=== PATIENT | male | born 1980 | race Caucasian/White ===

== ENCOUNTER 2017-12-28 13:40 | Emergency (ER) | payer OTHER ==
--- NOTE | 2017-12-28 14:37 | RAD REPORT ---
EXAM DESCRIPTION: CT - Stone Protocol - 12/28/2017 2:23 pm CLINICAL HISTORY: Abdominal pain. Right flank pain for 5 days COMPARISON: None. TECHNIQUE: Computed axial tomography of the abdomen pelvis was obtained without oral or IV contrast. Lack of IV and oral contrast limits evaluation of solid organs, bowel, and vessels. Coronal reformat ruben images were obtained and reviewed. All CT scans are performed using dose optimization technique as appropriate and may include automated exposure control or mA/KV adjustment according to patient size. FINDINGS: A 3 millimeter left renal calculus is present without hydronephrosis. . An ureteral calcul us is not noted. A bladder calculus is not present. The liver, spleen, pancreas and adrenals appear grossly normal There is no evidence of diverticulitis. The appendix appears normal The gallbladder has been removed IMPRESSION: A 3 millimeter nonobstructing left renal calculus
[2017-12-28] MEDS ORDERED: NA CHLORIDE 0.9% 1,000 ML ONE (15:05)
[2017-12-28] MEDS ORDERED: ONDANSETRON 4 MG/2 ML VIAL ONE (15:05)
[2017-12-28] MEDS ORDERED: MORPHINE 4 MG/ML SYR ONE (15:05)
[2017-12-28 15:06] LABS: Absolute Lymphocytes (CBC) 1.1 K/uL (0.7-4.9); Absolute Monocytes 0.3 K/uL (0.1-1.3); Absolute Neutrophil 3.2 K/uL (1.8-8.0); Basophils % 1.2 % (0-1.3); Eosinophils % 2.3 % (0-4.4); Hematocrit 47.2 % (39.6-49.0); Lymphocytes % 23.4 % (15.3-44.8); MCH 29.9 pg (27.0-35.0); MCV 90.5 fL (80-100); Monocytes % 5.4 % (3.3-12.3); RBC Red Blood Cell Count 5.22 M/uL (4.33-5.43)
[2017-12-28 15:10] LABS: Urine Blood NEGATIVE (NEG); Urine Glucose NEGATIVE (NEG); Urine Protein NEGATIVE (NEG); Urine pH 8.5 (5.0-7.0)
[2017-12-28 15:13] LABS: Urine Bacteria <20 /HPF (NONE SEEN); Urine Culture Reflex Order NOT NEEDED; Urine RBC <5 /HPF (NONE SEEN)
[2017-12-28 15:14] LABS: Bicarbonate 30 mEq/L (21-31); Glucose Level 111 mg/dL (65-120); Lipase 31 U/L (22-51); Potassium 4.2 mEq/L (3.6-5.0); Sodium Level 142 mEq/L (135-145)
[2017-12-28 15:20] LABS: ALT/SGPT 37 IU/L (10-60); AST/SGOT 30 IU/L (10-42); Albumin 4.9 g/dL (3.2-5.5); Alkaline Phosphatase 49 IU/L (42-121); Amylase Level 49 U/L (28-100); BUN Blood Urea Nitrogen 12 mg/dL (6-20); Bilirubin Direct 0.1 mg/dL (0-0.2); Bilirubin Total 0.8 mg/dL (0.3-1.2); Protein, Total 7.8 g/dL (6.0-8.3)
--- NOTE | 2017-12-28 15:44 | RAD REPORT ---
EXAM DESCRIPTION: Ribs Right - 12/28/2017 3:33 pm CLINICAL HISTORY: Right rib pain FINDINGS: No fracture is seen
--- NOTE | 2017-12-28 15:46 | RAD REPORT ---
EXAM DESCRIPTION: [place]ad Single View12/28/2017 3:33 pm CLINICAL HISTORY: Chest pain COMPARISON: none FINDINGS: The lungs appear clear of acute infiltrate. The heart is normal size IMPRESSION: No acute abnormalities displayed
[2017-12-28 16:33] LABS: Protime INR 1.01
--- NOTE | 2017-12-28 17:56 | ER ---
Nurse's Notes [facility] Name: Yared Rosenthal Jr Age: 37 yrs Sex: Male : 1980 Arrival Date: 12/28/2017 Time: 13:43 Bed 24 Private MD: Jono Marshall Diagnosis: Strain of muscle and tendon of back wall of thorax Presentation: 12/28 13:44 Presenting complaint: Patient states: Right upper back pain x 5 days, unrelieved by hb Motrin and Tylenol 3. Pt also reports foul smelling urine x 2 weeks. Transition of care: patient was not received from another setting of care. Onset of symptoms was December 24, 2017. Risk Assessment: Do you want to hurt yourself or someone else? Patient reports no desire to harm self or others. 13:44 Method Of Arrival: Ambulatory 13:44 Acuity: GLORIA 3 12/29 00:36 Initial Sepsis Screen: Does the patient meet any 2 criteria? No. Patient's initial tl3 sepsis screen is negative. Does the patient have a suspected source of infection? No. Patient's initial sepsis screen is negative. Care prior to arrival: None. Triage Assessment: 00:37 General:. tl3 Historical: - Allergies: 12/28 13:47 No Known Allergies; hb - Home Meds: 13:47 unknown bp med [Active]; hb - PMHx: 13:47 Hypertension; hb - PSHx: 13:47 Cholecystectomy; hb - Immunization history:: Adult Immunizations up to date. - Social history:: Smoking status: Patient/guardian denies using tobacco. - Ebola Screening: : No symptoms or risks identified at this time. Screenin:00 Abuse screen: Denies threats or abuse. Nutritional screening: No deficits noted. tl3 Tuberculosis screening: No symptoms or risk factors identified. Fall Risk None identified. Assessment: 14:00 General: Appears uncomfortable, well groomed, well developed, well nourished, Behavior tl3 is calm, cooperative, appropriate for age. Pain: Complains of pain in back, rib pain. Neuro: Level of Consciousness is awake, alert, obeys commands, Oriented to person, place, time, situation, Appropriate for age. Cardiovascular: Patient's skin is warm and dry. Respiratory: Airway is patent Respiratory effort is even, unlabored, Respiratory pattern is regular, symmetrical, Breath sounds are clear bilaterally. GI: No deficits noted. No signs and/or symptoms were reported involving the gastrointestinal system. : No deficits noted. No signs and/or symptoms were reported regarding the genitourinary system. EENT: No deficits noted. No signs and/or symptoms were reported regarding the EENT system. Derm: No deficits noted. Musculoskeletal: No deficits noted. No signs and/or symptoms reported regarding the musculoskeletal system. 16:55 Reassessment: Patient appears in no apparent distress at this time. No changes from tl3 previously documented assessment. Patient and/or family updated on plan of care and expected duration. Pain level reassessed. Patient is alert, oriented x 3, equal unlabored respirations, skin warm/dry/pink. 18:39 Reassessment: Patient appears in no apparent distress at this time. No changes from tl3 previously documented assessment. Patient and/or family updated on plan of care and expected duration. Pain level reassessed. Patient is alert, oriented x 3, equal unlabored respirations, skin warm/dry/pink. discussed with pt the need to redraw lab samples, he stated he was not worried about the labs being redone since all of the other testing was normal. Ronal at bedside discussing results and treatment options. Vital Signs: 13:46 BP 139 / 81; Pulse 61; Resp 15; Temp 98.4; Pulse Ox 100% on R/A; Weight 83.91 kg; hb Height 5 ft. 11 in. (180.34 cm); Pain 9/10; 14:00 BP 121 / 77; Pulse 51; Resp 18; Pulse Ox 100% ; tl3 16:55 BP 118 / 71; Pulse 46; Resp 16; Pulse Ox 100% on R/A; tl3 13:46 Body Mass Index 25.80 (83.91 kg, 180.34 cm) hb ED Course: 13:43 Patient arrived in ED. mr 13:44 Jono Marshall MD is Private Physician. mr 13:46 Triage completed. hb 13:46 Arm band placed on left wrist. hb 13:51 [facility] pm1 13:51 Braxton Stone MD is Attending Physician. pm1 14:00 Patient has correct armband on for positive identification. Bed in low position. Call tl3 light in reach. Side rails up X 1. Adult w/ patient. Pulse ox on. NIBP on. 14:21 Nicolle Scanlon, RN is Primary Nurse. tl3 14:23 CT completed. Patient moved to CT via wheelchair. Patient moved back from CT. cw1 14:23 CT Stone Protocol In Process Unspecified. EDMS 15:01 Initial lab(s) drawn, by me, sent to lab. Urine collected: clean catch specimen, clear. tl3 Inserted saline lock: 20 gauge in right forearm, using aseptic technique. Blood collected. 15:10 EKG done, by ED staff. jp3 15:10 No provider procedures requiring assistance completed. tl3 15:27 Chest Single View XRAY In Process Unspecified. EDMS 15:27 Ribs Right XRAY In Process Unspecified. EDMS 17:56 Jono Marshall MD is Referral Physician. pm1 18:39 IV discontinued, intact, bleeding controlled, No redness/swelling at site. Pressure tl3 dressing applied. Administered Medications: 15:17 Drug: Zofran 4 mg Route: IVP; Infused Over: 2 mins; Site: right forearm; tl3 16:56 Follow up: Response: No adverse reaction tl3 15:18 Drug: NS 0.9% 1000 ml Route: IV; Rate: 1000 ml; Site: right forearm; Delivery: Primary tl3 tubing; 16:56 Follow up: IV Status: Completed infusion; IV Intake: 1000ml tl3 15:18 Drug: morphine 4 mg Route: IVP; Infused Over: 3 mins; Site: right forearm; tl3 16:56 Follow up: Response: No adverse reaction tl3 Intake: 16:56 IV: 1000ml; Total: 1000ml. tl3 Outcome: 17:56 Discharge ordered by . pm1 18:39 Patient left the ED. jl7 18:39 Discharged to home ambulatory. tl3 18:39 Condition: good 18:39 Discharge instructions given to patient, family, Instructed on discharge instructions, follow up and referral plans. Demonstrated understanding of instructions, follow-up care. Signatures: Dispatcher [employer] [facility] Annie Galeana Crystal cw1 Ronal Hawthorne, HOSTESS HOSTESS pm1 Fannie Lewis RN RN hb Leal, Jahala, RN RN jl7 Nicolle Scanlon, ERIC REYES tl3 Tucker Crandall jp3 Corrections: (The following items were deleted from the chart) 13:48 13:44 Presenting complaint: Patient states: Right upper back pain x 5 days, unrelieved hb by Motrin and Tylenol 3. hb 13:48 13:44 Presenting complaint: Patient states: Right upper back pain x 5 days, unrelieved hb by Motrin and Tylenol 3. Pt also report foul smelling urine x 2 weeks hb 12/29 00:36 06 18:39 Reassessment: Patient appears in no apparent distress at this time. No tl3 changes from previously documented assessment. Patient and/or family updated on plan of care and expected duration. Pain level reassessed. Patient is alert, oriented x 3, equal unlabored respirations, skin warm/dry/pink. discussed with pt the need to redraw lab samples, he stated he was not worried about the labs being redone since all of the other testing was normal tl3
--- NOTE | 2017-12-28 17:57 | EDPHYS ---
Physician Documentation [facility] Name: Yared Rosenthal Jr Age: 37 yrs Sex: Male : 1980 Arrival Date: 12/28/2017 Time: 13:43 Bed 24 Private MD: Jono Marshall ED Physician Braxton Stone HPI: 12/28 15:00 This 37 yrs old Male presents to ER via Ambulatory with complaints of Left pm1 Back Pain. 15:00 The patient presents with pain that is acute. The symptoms are located in the right pm1 subscapular area. 15:00 Onset: The symptoms/episode began/occurred 5 day(s) ago. The pain does not radiate. pm1 Associated signs and symptoms: Pertinent positives: Right sided chest pain, Pertinent negatives: abdominal pain, dysuria, fever, headache, nausea, numbness, tingling, vomiting, Shortness of breath. The problem was sustained Possibly sports or kidney stone. Modifying factors: The patient symptoms are alleviated by Palpation to right subscapular area. Severity of symptoms: in the emergency department the symptoms are actually worse. 16:00 Patient with right subscapular back pain that feels like his prior renal stone in the pm1 past that waxes and wanes. Patient also reports that he was playing softball and plays third base. Patient dove for a ball and landed on his right shoulder. Patient suspects that it might be the diving motion too. Patient was given a prescription for muscle relaxant and NSAID by PCP for the same presentation pain. Historical: - Allergies: 13:47 No Known Allergies; hb - Home Meds: 13:47 unknown bp med [Active]; hb - PMHx: 13:47 Hypertension; hb - PSHx: 13:47 Cholecystectomy; hb - Immunization history:: Adult Immunizations up to date. - Social history:: Smoking status: Patient/guardian denies using tobacco. - Ebola Screening: : No symptoms or risks identified at this time. ROS: 16:00 Constitutional: Negative for fever, chills, and weight loss, Eyes: Negative for injury, pm1 pain, redness, and discharge, ENT: Negative for injury, pain, and discharge, Neck: Negative for injury, pain, and swelling. 16:00 Respiratory: Negative for shortness of breath, cough, wheezing. Deep brathing increases pain to right subscapular area 16:00 Abdomen/GI: Negative for abdominal pain, nausea, vomiting, diarrhea, and constipation, Back: Negative for injury and pain, MS/Extremity: Negative for injury and deformity, Skin: Negative for injury, rash, and discoloration, Neuro: Negative for headache, weakness, numbness, tingling, and seizure. 16:00 Cardiovascular: Positive for chest pain, of the anterior aspect of right upper chest, Negative for edema, palpitations. Exam: 16:00 Constitutional: This is a well developed, well nourished patient who is awake, alert, pm1 and in no acute distress. Head/Face: Normocephalic, atraumatic. Eyes: Pupils equal round and reactive to light, extra-ocular motions intact. Lids and lashes normal. Conjunctiva and sclera are non-icteric and not injected. Cornea within normal limits. Periorbital areas with no swelling, redness, or edema. ENT: Nares patent. No nasal discharge, no septal abnormalities noted. Tympanic membranes are normal and external auditory canals are clear. Oropharynx with no redness, swelling, or masses, exudates, or evidence of obstruction, uvula midline. Mucous membranes moist. Neck: Trachea midline, no thyromegaly or masses palpated, and no cervical lymphadenopathy. Supple, full range of motion without nuchal rigidity, or vertebral point tenderness. No Meningismus. Chest/axilla: Normal chest wall appearance and motion. Nontender with no deformity. No lesions are appreciated. Cardiovascular: Regular rate and rhythm with a normal S1 and S2. No gallops, murmurs, or rubs. Normal PMI, no JVD. No pulse deficits. Respiratory: Lungs have equal breath sounds bilaterally, clear to auscultation and percussion. No rales, rhonchi or wheezes noted. No increased work of breathing, no retractions or nasal flaring. Abdomen/GI: Soft, non-tender, with normal bowel sounds. No distension or tympany. No guarding or rebound. No evidence of tenderness throughout. 16:00 Skin: Warm, dry with normal turgor. Normal color with no rashes, no lesions, and no evidence of cellulitis. MS/ Extremity: Pulses equal, no cyanosis. Neurovascular intact. Full, normal range of motion. 16:00 Back: pain, that is moderate, of the right subscapular area, tenderness, normal spinal alignment noted. 16:00 Neuro: Orientation: is normal, Motor: is normal, moves all fours, Sensation: is normal, no obvious gross deficits, Gait: is steady, at a normal pace, without difficulty. Vital Signs: 13:46 BP 139 / 81; Pulse 61; Resp 15; Temp 98.4; Pulse Ox 100% on R/A; Weight 83.91 kg; hb Height 5 ft. 11 in. (180.34 cm); Pain 9/10; 14:00 BP 121 / 77; Pulse 51; Resp 18; Pulse Ox 100% ; tl3 16:55 BP 118 / 71; Pulse 46; Resp 16; Pulse Ox 100% on R/A; tl3 13:46 Body Mass Index 25.80 (83.91 kg, 180.34 cm) hb MDM: 13:53 Patient medically screened. lesley 17:41 Data reviewed: vital signs. Data interpreted: Pulse oximetry: on room air is 100 %. pm1 Interpretation: normal. 17:43 Refusal of service: The patient/guardian displays adequate decision making capability pm1 and despite a detailed discussion of alternatives, benefits, risks, and consequences refuses: Patient does not want to wait for labs: troponin, mg, cpk, ckmb, and bnp. Patient wants to go home. Labs require redraw for laboratory to perform them. 12/28 14:13 Order name: Amylase, Serum pm1 12/28 14:13 Order name: Basic Metabolic Panel pm1 12/28 14:13 Order name: CBC with Diff pm1 12/28 14:13 Order name: Creatinine for Radiology; Complete Time: 15:52 pm1 12/28 14:13 Order name: Hepatic Function pm1 12/28 14:13 Order name: Lipase pm1 12/28 14:13 Order name: Urine Microscopic Only; Complete Time: 15:52 pm1 12/28 14:13 Order name: Amylase Level; Complete Time: 15:52 EDMS 12/28 14:13 Order name: Basic Metabolic Panel; Complete Time: 15:52 EDMS 12/28 14:13 Order name: CBC with Automated Diff; Complete Time: 15:52 EDMS 12/28 14:13 Order name: Liver (Hepatic) Function; Complete Time: 15:52 EDMS 12/28 14:13 Order name: Lipase; Complete Time: 15:52 EDMS 12/28 14:13 Order name: IV Saline Lock; Complete Time: 15:19 pm1 12/28 14:13 Order name: Labs collected and sent; Complete Time: 15:19 pm1 12/28 14:13 Order name: Urine Dipstick-Ancillary (obtain specimen); Complete Time: 15:19 pm1 12/28 14:13 Order name: CT Stone Protocol; Complete Time: 14:39 pm1 12/28 15:00 Order name: Chest Single View XRAY; Complete Time: 15:52 pm1 12/28 15:00 Order name: Ribs Right XRAY; Complete Time: 15:52 pm1 12/28 15:02 Order name: PT-INR; Complete Time: 16:40 pm1 12/28 15:02 Order name: Ptt, Activated; Complete Time: 16:40 pm1 12/28 15:02 Order name: EKG; Complete Time: 15:03 pm1 12/28 15:06 Order name: Urine Dipstick--Ancillary (enter results); Complete Time: 15:52 bd 12/28 15:02 Order name: EKG - Nurse/Tech; Complete Time: 15:17 pm1 Administered Medications: 15:17 Drug: Zofran 4 mg Route: IVP; Infused Over: 2 mins; Site: right forearm; tl3 16:56 Follow up: Response: No adverse reaction tl3 15:18 Drug: NS 0.9% 1000 ml Route: IV; Rate: 1000 ml; Site: right forearm; Delivery: Primary tl3 tubing; 16:56 Follow up: IV Status: Completed infusion; IV Intake: 1000ml tl3 15:18 Drug: morphine 4 mg Route: IVP; Infused Over: 3 mins; Site: right forearm; tl3 16:56 Follow up: Response: No adverse reaction tl3 Disposition: 12/29 14:10 Co-signature as Attending Physician, Braxton Stone MD I agree with the assessment and lesley plan of care. Disposition: 12/28/17 17:56 Discharged to Home. Impression: Strain of muscle and tendon of back wall of thorax. - Condition is Stable. - Discharge Instructions: Muscle Strain. - Medication Reconciliation Form, Thank You Letter form. - Follow up: Emergency Department; When: As needed; Reason: Worsening of condition. Follow up: Jono Marshall MD; When: 2 - 3 days; Reason: Recheck today's complaints, Continuance of care, Re-evaluation by your physician. - Problem is new. - Symptoms have improved. Signatures: Dispatcher [employer] Braxton Bingham MD MD cha Marinas, Patrick, ONLINE USER EXPERIENCE STRATEGIST ONLINE USER EXPERIENCE STRATEGIST pm1 Fannie Lewis, RN RN hb Kimberly Welch RN RN jl7 Nicolle Scanlon RN RN tl3 Corrections: (The following items were deleted from the chart) 12/28 18:39 17:56 12/28/2017 17:56 Discharged to Home. Impression: Strain of muscle and tendon of jl7 back wall of thorax. Condition is Stable. Forms are Medication Reconciliation Form, Thank You Letter, Antibiotic Education, Prescription Opioid Use. Follow up: Emergency Department; When: As needed; Reason: Worsening of condition. Follow up: Jono Marshall; When: 2 - 3 days; Reason: Recheck today's complaints, Continuance of care, Re-evaluation by your physician. Problem is new. Symptoms have improved. pm1
--- NOTE | 2017-12-29 07:33 | EKG ---
Test Date: 2017-12-28 Test Time: 15:09:45 Core Man: MACARIO MEASUREMENT RESULTS: Intervals: Rate: 52 AR: 152 QRSD: 88 QT: 406 QTc: 377 [place]: P: 37 AR: 152 QRS: 103 T: 47 INTERPRETIVE STATEMENTS: Sinus bradycardia Rightward axis Borderline ECG Compared to ECG 07/23/1993 09:32:00 Sinus rhythm no longer present Electronically Signed On 12-29-17 07:32:58 CDT by Soham Guzman
== END 2017-12-28 18:39 | disposition home or self-care (01) ==
LOC: ER 13:40
DX: S29.012A Strain of muscle and tendon of back wall of thorax, initial encounter (principal); X58.XXXA Exposure to other specified factors, initial encounter; Y93.64 Activity, baseball; Y92.9 Unspecified place or not applicable; I10 Essential (primary) hypertension
CPT/HCPCS: 36415; 71045; 74176; 76377; 80048; 80076; 81003; 81015; 82150; 83690; 85025; 85610; 85730; 93005; 96361; 96374; 96375; 99284; J2405; J7030

== ENCOUNTER 2019-05-24 18:42 | Inpatient (IN) | payer BC, OTHER ==
[2019-05-24] MEDS ORDERED: NA CHLORIDE 0.9% 1,000 ML ONE ×2 (19:04)
[2019-05-24] MEDS ORDERED: MORPHINE 4 MG/ML SYR ONE (19:04)
[2019-05-24] MEDS ORDERED: ONDANSETRON 4 MG/2 ML VIAL ONE ×4 (19:04→22:21)
[2019-05-24] MEDS ORDERED: CEFTRIAXONE/SWI 1gm 1 GM/10 ML SYR ONE (19:04)
[2019-05-24] MEDS ORDERED: KETOROLAC 30 MG/ML INJ ONE (19:04)
[2019-05-24] MEDS ORDERED: TAMSULOSIN 0.4 MG SR CAP ONE (19:04)
[2019-05-24 19:28] LABS: Albumin 4.7 g/dL (3.4-5.0); Bilirubin Direct 0.2 mg/dL (0-0.2); Bilirubin Total 0.9 mg/dL (0.2-1.0); Potassium 3.4 mmol/L (3.5-5.1); Protein, Total 7.6 g/dL (6.4-8.2)
[2019-05-24 19:29] LABS: Absolute Lymphocytes (CBC) 2.2 K/uL (0.7-4.9); Basophils % 0.9 % (0-1.3); Hematocrit 46.4 % (39.6-49.0); Lymphocytes % 31.6 % (15.3-44.8); MPV 8.4 fL (7.6-11.3); RBC Red Blood Cell Count 5.05 M/uL (4.33-5.43)
--- NOTE | 2019-05-24 19:44 | RAD REPORT ---
EXAM DESCRIPTION: CT - Stone Protocol - 05/24/2019 7:20 pm CLINICAL HISTORY: Back pain, nausea, vomiting, kidney stone history COMPARISON: December 2017 TECHNIQUE: Axial 5 mm thick images were obtained without oral or IV contrast. The [id number] span s the entirety of the system partially obscuring uppermost abdomen and lung bases. All CT scans are performed using dose optimization technique as appropriate and may include automated exposure control or mA/KV adjustment according to patient size. FINDINGS: Mild left-sided hydronephrosis of the pelvis and calices noted secondary to a 5 mm left UP J calculus. No additional left-sided calculi seen. No right-sided hydronephrosis. Trace amount of str anding in the perinephric fat. No suspicious renal masses. Isodense masses and pyelonephritis are not excluded on a stone protocol CT scan. No urinary bladder suspicious finding. No significant adrenal finding. Imaged portions of the liver, spleen and pancreas show no suspicious findings on non-contrast imaging . Gallbladder is absent. No biliary tree dilatation. No suspicious bowel findings. No hernia, mass or bulky lymphadenopathy noted. No free air, free fluid or inflammatory stranding. No significant bony abnormality. IMPRESSION: Mild left-sided hydronephrosis secondary to 5 mm left UPJ calculus. Isodense masses and pyelonephritis are not excluded on stone protocol technique.
[2019-05-24] MEDS ORDERED: HYDROMORPHONE HCL 1 MG/ML INJ ONE (19:46)
--- NOTE | 2019-05-24 20:31 | ER ---
Nurse's Notes [facility] Name: Yared Rosenthal Jr Age: 38 yrs Sex: Male : 1980 Arrival Date: 05/24/2019 Time: 18:45 Bed 19 Private MD: Jono Marshall Diagnosis: Hydronephrosis with renal and ureteral calculous obstruction-5 MM UVJ;Volume depletion;Unspecified kidney failure-INSUFFICENCY;Hypokalemia Presentation: 05/24 18:50 Presenting complaint: Patient states: Low back pain since yesterday that became severe aj1 today. Patient also reports nausea, denies vomiting, Reports history of kidney stones states that this feels similar to his previous stones. Patient appears restless, diaphoretic. Transition of care: patient was not received from another setting of care. Onset of symptoms was May 23, 2019. Risk Assessment: Do you want to hurt yourself or someone else? Patient reports no desire to harm self or others. Initial Sepsis Screen: Does the patient meet any 2 criteria? No. Patient's initial sepsis screen is negative. Does the patient have a suspected source of infection? No. Patient's initial sepsis screen is negative. Care prior to arrival: None. 18:50 Method Of Arrival: Ambulatory aj1 18:50 Acuity: GLORIA 2 aj1 Triage Assessment: 18:52 General: Appears uncomfortable, Behavior is cooperative, restless. Pain: Complains of aj1 pain in left low back Pain currently is 10 out of 10 on a pain scale. Neuro: Level of Consciousness is awake, alert, obeys commands. Cardiovascular: Patient's skin is warm and dry. Respiratory: Airway is patent Respiratory effort is even, unlabored, Respiratory pattern is regular, symmetrical. GI: Reports nausea, vomiting. Historical: - Allergies: 18:52 No Known Allergies; aj1 - Home Meds: 18:52 amlodipine oral [Active]; aj1 - PMHx: 18:52 Hypertension; Kidney stones; aj1 - PSHx: 18:52 Cholecystectomy; aj1 - Immunization history:: Flu vaccine is not up to date. - Social history:: Smoking status: Patient/guardian denies using tobacco. - Ebola Screening: : Patient denies travel to an Ebola-affected area in the 21 days before illness onset. - Family history:: not pertinent. Screenin:55 Abuse screen: Denies threats or abuse. Denies injuries from another. Nutritional ca1 screening: No deficits noted. Tuberculosis screening: No symptoms or risk factors identified. Fall Risk IV access (20 points). Assessment: 18:55 General: Appears in no apparent distress. uncomfortable, Behavior is calm, cooperative, ca1 appropriate for age. Pain: Complains of pain in left mid back and left low back Pain radiates to left lower quadrant and pelvis Pain currently is 10 out of 10 on a pain scale. Quality of pain is described as squeezing, Pain began 1 day ago. Is continuous. Neuro: Level of Consciousness is awake, alert, obeys commands, Oriented to person, place, time, situation. Cardiovascular: Heart tones S1 S2 present Capillary refill < 3 seconds Patient's skin is warm and dry. Respiratory: Airway is patent Respiratory effort is even, unlabored, Respiratory pattern is regular, symmetrical, Breath sounds are clear bilaterally. GI: Abdomen is round non-distended, Bowel sounds present X 4 quads. Abd is soft and non tender X 4 quads. Reports nausea. : No deficits noted. No signs and/or symptoms were reported regarding the genitourinary system. EENT: No deficits noted. No signs and/or symptoms were reported regarding the EENT system. Derm: Skin is intact, is healthy with good turgor, Skin is pink, warm \T\ dry. Musculoskeletal: Circulation, motion, and sensation intact. Capillary refill < 3 seconds, Range of motion: intact in all extremities. 19:30 Reassessment: Patient appears in no apparent distress at this time. Patient is alert, rr5 oriented x 3, equal unlabored respirations, skin warm/dry/pink. Patient states feeling better. Patient states symptoms have improved. Reassessment: awaiting for results. Pain: Pain currently is 2 out of 10 on a pain scale. 19:48 Pain: Complains of pain in left lower quadrant Pain radiates to back Pain currently is rr5 10 out of 10 on a pain scale. Quality of pain is described as aching, Pain began suddenly, Is continuous. GI: Pt is actively vomiting previously ingested red wine. 19:48 Reassessment: ED provider aware with order made and carried out. rr5 20:30 Reassessment: Patient appears in no apparent distress at this time. Patient is alert, rr5 oriented x 3, equal unlabored respirations, skin warm/dry/pink. Patient states feeling better. Patient states symptoms have improved. 20:30 Pain: Pain currently is 2 out of 10 on a pain scale. rr5 20:50 Reassessment: Patient appears in no apparent distress at this time. Patient is alert, rr5 oriented x 3, equal unlabored respirations, skin warm/dry/pink. ED provider reexamined the patient advised for admission and agreed for the plan of care. 21:05 Reassessment: Patient appears in no apparent distress at this time. Pain: Pain rr5 currently is 10 out of 10 on a pain scale. GI: Reports lower abdominal pain, nausea. 21:05 Reassessment: ED provider aware with order made and carried out. see MAR. rr5 21:35 Reassessment: Patient appears in no apparent distress at this time. Patient is alert, rr5 oriented x 3, equal unlabored respirations, skin warm/dry/pink. Patient states feeling better. Patient states symptoms have improved. Pain: Pain currently is 1 out of 10 on a pain scale. 22:20 Reassessment: Patient appears in no apparent distress at this time. patient complained rr5 of nausea and vomiting. Dr lynn informed isaac phone with telephone order made and carried out. Vital Signs: 18:52 BP 160 / 98; Pulse 81; Resp 18; Temp 97.0; Pulse Ox 97% on R/A; Weight 84.82 kg (R); aj1 Height 5 ft. 11 in. (180.34 cm) (R); Pain 10/10; 19:35 BP 157 / 102; Pulse 71; Resp 19; Temp 97.7; Pulse Ox 99% ; Pain 2/10; rr5 19:50 BP 166 / 103; Pulse 75; Resp 19; Pulse Ox 99% on R/A; Pain 10/10; rr5 21:10 BP 137 / 83; Pulse 79; Resp 18; Pulse Ox 99% on R/A; rr5 22:46 BP 124 / 84; Pulse 67; Resp 17; Temp 97.8; Pulse Ox 99% ; Pain 2/10; rr5 18:52 Body Mass Index 26.08 (84.82 kg, 180.34 cm) [facility] ED Course: 18:45 Patient arrived in ED. mr 18:46 Jono Marshall MD is Private Physician. mr 18:46 Braxton Stone MD is Attending Physician. lesley 18:47 Nan Martinez, ERIC is Primary Nurse. ca1 18:51 Triage completed. aj1 18:52 Arm band placed on Patient placed in an exam room. aj1 18:55 Patient has correct armband on for positive identification. Placed in gown. Bed in low ca1 position. Call light in reach. Side rails up X 1. Pulse ox on. NIBP on. Warm blanket given. 18:55 No provider procedures requiring assistance completed. ca1 19:02 Initial lab(s) drawn, by me, sent to lab. Inserted saline lock: 20 gauge in right lt1 antecubital area, using aseptic technique. 19:[address] via wheelchair. eh 19:18 CT completed. Patient tolerated procedure well. eh 19:21 Patient moved back from CT. eh 19:22 CT Stone Protocol In Process Unspecified. EDMS 20:29 Jono Marshall MD is Referral Physician. lesley 20:29 Brynn Alcazar MD is Referral Physician. lesley 20:42 Lyle Lynn MD is Hospitalizing Provider. lesley 21:07 Abdomen 1 View (KUB) XRAY In Process Unspecified. EDMS 22:46 Patient admitted, IV remains in place. intact, No redness/swelling at site. rr5 Administered Medications: 19:03 Drug: NS 0.9% 1000 ml Route: IV; Rate: 1 bolus; Site: right antecubital; ca1 20:19 Follow up: Response: No adverse reaction; IV Status: Completed infusion; IV Intake: rr5 1000ml 19:04 Drug: TORadol 30 mg Route: IVP; Site: right antecubital; ca1 20:05 Follow up: Response: No adverse reaction; Pain is decreased rr5 19:06 Drug: Zofran 4 mg Route: IVP; Site: right antecubital; ca1 19:50 Follow up: Response: No adverse reaction; Nausea is increased rr5 19:10 Drug: morphine 4 mg {Note: RASS - 0.} Route: IVP; Site: right antecubital; ca1 19:50 Follow up: Response: Pain is increased; RASS: Alert and Calm (0) rr5 19:15 Drug: Flomax 0.4 mg Route: PO; ca1 20:11 Follow up: Response: No adverse reaction rr5 19:19 Drug: Rocephin 1 grams Route: IV; Rate: per protocol; Site: right antecubital; ca1 20:22 Follow up: Response: No adverse reaction; IV Status: Completed infusion; IV Intake: [id number] 19:50 Drug: Zofran 4 mg Route: IVP; Site: right antecubital; rr5 20:00 Follow up: Response: No adverse reaction; Vomiting decreased rr5 19:52 Drug: Dilaudid 1 mg {Note: rass 0.} Route: IVP; Site: right antecubital; rr5 20:50 Follow up: Response: Pain is decreased; RASS: Alert and Calm (0) rr5 20:19 Drug: NS 0.9% 1000 ml Route: IV; Rate: 1 bolus; Site: right antecubital; rr5 21:15 Follow up: Response: No adverse reaction; IV Status: Completed infusion; IV Intake: rr5 1000ml 21:10 Drug: Zofran 4 mg Route: IVP; Site: right antecubital; rr5 22:00 Follow up: Response: No adverse reaction; Nausea is decreased; Vomiting decreased rr5 21:12 Drug: Dilaudid 0.5 mg {Note: rass 0.} Route: IVP; Site: right antecubital; rr5 22:00 Follow up: Response: Pain is decreased; RASS: Alert and Calm (0) rr5 22:25 Drug: Phenergan 25 mg {Note: diluted to NS 100 ml to run for 30 mnutes..} Route: IVP; rr5 Site: right antecubital; 22:47 Follow up: Response: No adverse reaction; Other; contnue on admission rr5 22:55 Follow up: Response: No adverse reaction; completed infusion rr5 Intake: 20:19 IV: 1000ml; Total: 1000ml. rr5 20:22 IV: 10ml; Total: 1010ml. rr5 21:15 IV: 1000ml; Total: 2010ml. rr5 Outcome: 20:29 Discharge ordered by . lesley 20:43 Decision to Hospitalize by Provider. lesley 22:46 Admitted to Med/surg accompanied by tech, room 206, with chart, Report called to lazaro rr5 22:46 Condition: stable 22:46 Instructed on the need for admit. 22:55 Patient left the ED. rr5 Signatures: Dispatcher [employer] EDTaty Rocha RN RN aj1 Braxton Stone MD MD cha Rivera, Oneida mr Pk, Faustino Christie RN RN rr5 Nan Martinez RN RN ca1 Ragini, Tamiko lt1 Corrections: (The following items were deleted from the chart) 19:53 19:50 BP 166 / 103; Pulse 75bpm; Resp 19bpm; Pulse Ox 99% RA; rr5 rr5
--- NOTE | 2019-05-24 20:31 | EDPHYS ---
Physician Documentation [facility] Name: Yared Rosenthal Jr Age: 38 yrs Sex: Male : 1980 Arrival Date: 05/24/2019 Time: 18:45 Bed 19 Private MD: Jono Marshall ED Physician Braxton Stone HPI: 05/24 19:10 This 38 yrs old Male presents to ER via Ambulatory with complaints of lesley Possible Kidney Stone. 19:10 The patient complains of pain in the left low back and left mid back. The pain radiates lesley to the left low back and left mid back. Onset: The symptoms/episode began/occurred just prior to arrival. Modifying factors: The symptoms are alleviated by nothing. the symptoms are aggravated by nothing. The patient presents with pain that is acute. The symptoms are located in the left low back and left mid back. Onset: The symptoms/episode began/occurred just prior to arrival. The pain does not radiate. Historical: - Allergies: 18:52 No Known Allergies; aj1 - Home Meds: 18:52 amlodipine oral [Active]; aj1 - PMHx: 18:52 Hypertension; Kidney stones; aj1 - PSHx: 18:52 Cholecystectomy; aj1 - Immunization history:: Flu vaccine is not up to date. - Social history:: Smoking status: Patient/guardian denies using tobacco. - Ebola Screening: : Patient denies travel to an Ebola-affected area in the 21 days before illness onset. - Family history:: not pertinent. ROS: 19:10 Constitutional: Negative for fever, chills, and weight loss, Eyes: Negative for injury, lesley pain, redness, and discharge, ENT: Negative for injury, pain, and discharge, Neck: Negative for injury, pain, and swelling, Cardiovascular: Negative for chest pain, palpitations, and edema, Respiratory: Negative for shortness of breath, cough, wheezing, and pleuritic chest pain, Abdomen/GI: Negative for abdominal pain, nausea, vomiting, diarrhea, and constipation, : Negative for injury, bleeding, discharge, and swelling, MS/Extremity: Negative for injury and deformity, Skin: Negative for injury, rash, and discoloration, Neuro: Negative for headache, weakness, numbness, tingling, and seizure, Psych: Negative for depression, anxiety, suicide ideation, homicidal ideation, and hallucinations, Allergy/Immunology: Negative for hives, rash, and allergies, Endocrine: Negative for neck swelling, polydipsia, polyuria, polyphagia, and marked weight changes, Hematologic/Lymphatic: Negative for swollen nodes, abnormal bleeding, and unusual bruising. 19:10 Back: Positive for flank pain, on the left. Exam: 19:10 Constitutional: This is a well developed, well nourished patient who is awake, alert, lesley and in no acute distress. Head/Face: Normocephalic, atraumatic. Eyes: Pupils equal round and reactive to light, extra-ocular motions intact. Lids and lashes normal. Conjunctiva and sclera are non-icteric and not injected. Cornea within normal limits. Periorbital areas with no swelling, redness, or edema. ENT: Nares patent. No nasal discharge, no septal abnormalities noted. Tympanic membranes are normal and external auditory canals are clear. Oropharynx with no redness, swelling, or masses, exudates, or evidence of obstruction, uvula midline. Mucous membranes moist. Neck: Trachea midline, no thyromegaly or masses palpated, and no cervical lymphadenopathy. Supple, full range of motion without nuchal rigidity, or vertebral point tenderness. No Meningismus. Chest/axilla: Normal chest wall appearance and motion. Nontender with no deformity. No lesions are appreciated. Cardiovascular: Regular rate and rhythm with a normal S1 and S2. No gallops, murmurs, or rubs. Normal PMI, no JVD. No pulse deficits. Respiratory: Lungs have equal breath sounds bilaterally, clear to auscultation and percussion. No rales, rhonchi or wheezes noted. No increased work of breathing, no retractions or nasal flaring. Male : Normal genitalia with no discharge or lesions. Skin: Warm, dry with normal turgor. Normal color with no rashes, no lesions, and no evidence of cellulitis. MS/ Extremity: Pulses equal, no cyanosis. Neurovascular intact. Full, normal range of motion. Neuro: Awake and alert, GCS 15, oriented to person, place, time, and situation. Cranial nerves II-XII grossly intact. Motor strength 5/5 in all extremities. Sensory grossly intact. Cerebellar exam normal. Normal gait. Psych: Awake, alert, with orientation to person, place and time. Behavior, mood, and affect are within normal limits. 19:10 Abdomen/GI: Inspection: abdomen appears normal, Bowel sounds: normal, Palpation: mild abdominal tenderness, Liver: no appreciated palpable abnormalities, Hernia: not appreciated. Vital Signs: 18:52 BP 160 / 98; Pulse 81; Resp 18; Temp 97.0; Pulse Ox 97% on R/A; Weight 84.82 kg (R); aj1 Height 5 ft. 11 in. (180.34 cm) (R); Pain 10/10; 19:35 BP 157 / 102; Pulse 71; Resp 19; Temp 97.7; Pulse Ox 99% ; Pain 2/10; rr5 19:50 BP 166 / 103; Pulse 75; Resp 19; Pulse Ox 99% on R/A; Pain 10/10; rr5 21:10 BP 137 / 83; Pulse 79; Resp 18; Pulse Ox 99% on R/A; rr5 22:46 BP 124 / 84; Pulse 67; Resp 17; Temp 97.8; Pulse Ox 99% ; Pain 2/10; rr5 18:52 Body Mass Index 26.08 (84.82 kg, 180.34 cm) aj1 MDM: 18:49 Patient medically screened. [facility] 19:12 Data reviewed: vital signs, nurses notes, lab test result(s), radiologic studies, CT lesley scan. 05/24 18:49 Order name: Basic Metabolic Panel; Complete Time: 19:34 [facility] 05/24 18:49 Order name: CBC with Diff; Complete Time: 19:51 [facility] 05/24 18:49 Order name: Creatinine for Radiology; Complete Time: 19:34 [facility] 05/24 18:49 Order name: Hepatic Function; Complete Time: 19:34 [facility] 05/24 18:49 Order name: Lipase; Complete Time: 19:34 [facility] 05/24 18:49 Order name: Urine Culture [facility] 05/24 22:02 Order name: CBC with Automated Diff EDMS 05/24 22:02 Order name: CBC with Automated Diff EDMS 05/24 22:02 Order name: Comprehensive Metabolic Panel EDMS 05/24 22:02 Order name: Comprehensive Metabolic Panel EDMS 05/24 22:02 Order name: Magnesium EDMS 05/24 22:02 Order name: Magnesium EDMS 05/24 22:02 Order name: Phosphorus EDMS 05/24 22:02 Order name: Phosphorus EDVT 05/24 18:49 Order name: CT Stone Protocol; Complete Time: 19:57 [facility] 05/24 20:30 Order name: Abdomen 1 View (KUB) XRAY [facility] 05/24 22:35 Order name: Urine Dipstick--Ancillary (enter results) md 05/24 22:42 Order name: Urine Dipstick-Ancillary [facility] 05/24 18:49 Order name: IV Saline Lock; Complete Time: 19:03 [facility] 05/24 18:49 Order name: Labs collected and sent; Complete Time: 19:03 [facility] 05/24 18:49 Order name: Urine Dipstick-Ancillary (obtain specimen); Complete Time: 22:45 [facility] 05/24 22:02 Order name: CONS Physician Consult [facility] 05/24 22:02 Order name: NPO EDVT Administered Medications: 19:03 Drug: NS 0.9% 1000 ml Route: IV; Rate: 1 bolus; Site: right antecubital; ca1 20:19 Follow up: Response: No adverse reaction; IV Status: Completed infusion; IV Intake: rr5 1000ml 19:04 Drug: TORadol 30 mg Route: IVP; Site: right antecubital; ca1 20:05 Follow up: Response: No adverse reaction; Pain is decreased rr5 19:06 Drug: Zofran 4 mg Route: IVP; Site: right antecubital; ca1 19:50 Follow up: Response: No adverse reaction; Nausea is increased rr5 19:10 Drug: morphine 4 mg {Note: RASS - 0.} Route: IVP; Site: right antecubital; ca1 19:50 Follow up: Response: Pain is increased; RASS: Alert and Calm (0) rr5 19:15 Drug: Flomax 0.4 mg Route: PO; ca1 20:11 Follow up: Response: No adverse reaction rr5 19:19 Drug: Rocephin 1 grams Route: IV; Rate: per protocol; Site: right antecubital; ca1 20:22 Follow up: Response: No adverse reaction; IV Status: Completed infusion; IV Intake: [id number] 19:50 Drug: Zofran 4 mg Route: IVP; Site: right antecubital; rr5 20:00 Follow up: Response: No adverse reaction; Vomiting decreased rr5 19:52 Drug: Dilaudid 1 mg {Note: rass 0.} Route: IVP; Site: right antecubital; rr5 20:50 Follow up: Response: Pain is decreased; RASS: Alert and Calm (0) rr5 20:19 Drug: NS 0.9% 1000 ml Route: IV; Rate: 1 bolus; Site: right antecubital; rr5 21:15 Follow up: Response: No adverse reaction; IV Status: Completed infusion; IV Intake: rr5 1000ml 21:10 Drug: Zofran 4 mg Route: IVP; Site: right antecubital; rr5 22:00 Follow up: Response: No adverse reaction; Nausea is decreased; Vomiting decreased rr5 21:12 Drug: Dilaudid 0.5 mg {Note: rass 0.} Route: IVP; Site: right antecubital; rr5 22:00 Follow up: Response: Pain is decreased; RASS: Alert and Calm (0) rr5 22:25 Drug: Phenergan 25 mg {Note: diluted to NS 100 ml to run for 30 mnutes..} Route: IVP; rr5 Site: right antecubital; 22:47 Follow up: Response: No adverse reaction; Other; contnue on admission rr5 22:55 Follow up: Response: No adverse reaction; completed infusion rr5 Disposition: 05/24/19 20:43 Hospitalization ordered by Lyle Do for Observation. Preliminary diagnosis are Hydronephrosis with renal and ureteral calculous obstruction - 5 MM UVJ, Volume depletion, Unspecified kidney failure - INSUFFICENCY, Hypokalemia. - Bed requested for Telemetry/MedSurg (observation). - Status is Observation. rr5 - Condition is Stable. - Problem is new. - Symptoms have improved. UTI on Admission? No Signatures: Dispatcher [employer] EDTaty Rocha RN RN aj1 Braxton Stone MD MD cha Garcia, Cindy RN RN Faustino Sims RN RN rr5 Nan Martinez RN RN ca1 Corrections: (The following items were deleted from the chart) 20:42 20:29 05/24/2019 20:29 Discharged to Home. Impression: Hydronephrosis with renal and lesley ureteral calculous obstruction - 5mm UPJ; Volume depletion; Volume depletion, unspecified; Hypokalemia. Condition is Stable. Discharge Instructions: Kidney Stones, Kidney Stones, [id number], Hydronephrosis, Dietary Guidelines to Help Prevent Kidney Stones, Dehydration, Adult, Potassium Content of Foods, Hypokalemia. Prescriptions for Tylenol-Codeine #3 300-30 mg Oral Tablet - take 2 tablet by ORAL route every 6 hours As needed; 30 tablet, Zofran 4 mg Oral Tablet - take 1 tablet by ORAL route every 12 hours As needed; 20 tablet, Flomax 0.4 mg Oral Capsule, Sust. Release 24 hr - take 1 capsule by ORAL route once daily 1/2 hour following the same meal each day; 30 capsule, Cipro 500 mg Oral Tablet - take 1 tablet by ORAL route every 12 hours for 7 days; 14 tablet. and Forms are Medication Reconciliation Form, Thank You Letter, Antibiotic Education, Prescription Opioid Use. Follow up: Jono Marshall; When: 2 - 3 days; Reason: Recheck today's complaints, Continuance of care, Re-evaluation by your physician. Follow up: Brynn Alcazar; When: 2 - 3 days; Reason: Recheck today's complaints, Continuance of care, Re-evaluation by your physician. Problem is new. Symptoms have improved. lesley 22:15 20:43 Hospitalization Ordered by Lyle Do MD for Observation. Preliminary cg diagnosis is Hydronephrosis with renal and ureteral calculous obstruction - 5 MM UVJ; Volume depletion; Unspecified kidney failure - INSUFFICENCY; Hypokalemia. Bed requested for Telemetry/MedSurg (observation). Status is Observation. Condition is Stable. Problem is new. Symptoms have improved. UTI on Admission? No. lesley 22:55 22:15 05/24/2019 20:43 Hospitalization Ordered by Lyle Do MD for Observation. rr5 Preliminary diagnosis is Hydronephrosis with renal and ureteral calculous obstruction - 5 MM UVJ; Volume depletion; Unspecified kidney failure - INSUFFICENCY; Hypokalemia. Bed requested for Telemetry/MedSurg (observation). Status is Observation. Condition is Stable. Problem is new. Symptoms have improved. UTI on Admission? No. cg
[2019-05-24] MEDS ORDERED: HYDROMORPHONE HCL 0.5 MG/0.5 ML INJ ONE (20:51)
--- NOTE | 2019-05-24 21:23 | RAD REPORT ---
EXAM DESCRIPTION: RAD - Abdomen 1 View (KUB) - 05/24/2019 9:07 pm CLINICAL HISTORY: 5 MM LEFT UPJ;Abd pain COMPARISON: ABDOMEN 1 VIEW KUB dated 03/13/2015; Stone Protocol dated 05/24/2019 FINDINGS: Bowel gas pattern is non-specific. No obstruction, free air or pneumatosis. No acute bone finding. CT imaging showed a UPJ calculus. Based on the CT study the stone should be in the region of the left lateral margin L2-3 disc. This stone is not evident on plain film. IMPRESSION: The patient's known left UPJ calculus is not seen on KUB imaging.
[2019-05-24] MEDS ORDERED: ACETAMINOPHEN 500 MG TAB PO PRN (21:58)
[2019-05-24] MEDS ORDERED: HYDROMORPHONE HCL 1 MG/ML INJ IV PRN (21:58)
[2019-05-24] MEDS ORDERED: ONDANSETRON 4 MG/2 ML VIAL IV PRN (21:58)
[2019-05-24] MEDS ORDERED: NA CHLORIDE 0.9% 100 ML IV ONE (22:25)
[2019-05-24] MEDS ORDERED: PROMETHAZINE 25 MG/ML VIAL ONE (22:25)
[2019-05-24 22:41] LABS: Urine Blood 2+ (NEG); Urine Glucose NEGATIVE (NEG); Urine Protein NEGATIVE (NEG); Urine Specific Gravity 1.025 (1.005-1.030)
[2019-05-24] MEDS: NA CHLORIDE 0.9% 1,000 ML IV SCH (23:13)
[2019-05-25] MEDS ORDERED: CEFAZOLIN/NS 1gm 1 GM/50 ML BAG IVPB SCH
[2019-05-25 00:16] VITALS: BMI 26.0
[2019-05-25] MEDS ORDERED: INFLUENZA VACCINE (for 3y+) 0.5 ML DOSE IMVAC ONE (00:21)
[2019-05-25] MEDS ORDERED: CEFAZOLIN/SWI 1gm 1 GM/10 ML SYR ONE ×2 (00:32→05:22)
[2019-05-25] MEDS: CEFAZOLIN/SWI 1gm 1 GM/10 ML SYR IV SCH ×2 (00:46→05:43)
[2019-05-25 05:55] LABS: Absolute Lymphocytes (CBC) 0.8 K/uL (0.7-4.9); Basophils % 0.5 % (0-1.3); Hematocrit 39.3 % (39.6-49.0); Lymphocytes % 16.3 % (15.3-44.8); MPV 8.4 fL (7.6-11.3); RBC Red Blood Cell Count 4.33 M/uL (4.33-5.43)
[2019-05-25] MEDS ORDERED: CEFAZOLIN/SWI 1gm 1 GM/10 ML SYR IV SCH (06:00)
[2019-05-25 06:04] LABS: Albumin 3.6 g/dL (3.4-5.0); Bilirubin Total 0.9 mg/dL (0.2-1.0); Magnesium 2.1 mg/dL (1.8-2.4); Phosphorus 3.6 mg/dL (2.5-4.9); Potassium 3.9 mmol/L (3.5-5.1); Protein, Total 6.3 g/dL (6.4-8.2)
[2019-05-25] MEDS: NA CHLORIDE 0.9% 1,000 ML IV SCH (07:59)
--- NOTE | 2019-05-25 08:08 | P.HP ---
Certification for Inpatient Patient admitted to: Inpatient With expected LOS: >2 Midnights Patient will require the following post-hospital care: None Practitioner: I am a practitioner with admitting privileges, knowledge of patient current condition, hospital course, and medical plan of care. Services: Services provided to patient in accordance with Admission requirements found in Title 42 Section 412.3 of the Code of Federal Regulations Patient History Date of Service: 05/24/19 Reason for admission: Obstructive uropathy History of Present Illness: Patient is a 38-year-old gentleman with history of nephrolithiasis. He came in complaining of right flank pain. This was very severe and he was having a difficult time urinating. In the emergency room he was treated and diagnostic studies revealed a 5 mm stone at the UVJ as well as moderate right-sided hydronephrosis. Patient had acute renal insufficiency with an elevated creatinine level. Patient is having severe pain. We have consulted Urology. Patient will be NPO after midnight. He may need a stone extraction if he does not passive. IV antibiotics and hydration as well. Allergies No Known Allergies Allergy (Unverified 12/28/17 18:43) Home Medications: Amlodipine Besylate 1 tab PO DAILY 05/24/19 - Past Medical/Surgical History Has patient received pneumonia vaccine in the past: No Diabetic: No -: HTN Past Surgical History: Patient denies surgical history - Family History Father Medical History: Cancer - Social History Smoking Status: Never smoker Alcohol use: No CD- Drugs: No Caffeine use: Yes Place of Residence: Home Review of Systems 10-point ROS is otherwise unremarkable Physical Examination - Vital Signs Temperature: 97.4 F Blood Pressure: 110/59 Pulse: 56 Respirations: 18 Pulse Ox (%): 96 - Physical Exam General: Alert, In no apparent distress, Oriented x3 HEENT: Atraumatic, PERRLA, Mucous membr. moist/pink, EOMI, Sclerae nonicteric Neck: Supple, 2+ carotid pulse no bruit, No LAD, Without JVD or thyroid abnormality Respiratory: Clear to auscultation bilaterally, Normal air movement Cardiovascular: Regular rate/rhythm, Normal S1 S2, No murmurs Gastrointestinal: Normal bowel sounds, Soft and benign, Non-distended, Tenderness (Right flank tenderness) Musculoskeletal: No clubbing, No swelling, No tenderness Integumentary: No rashes Neurological: Normal gait, Normal speech, Normal strength at 5/5 x4 extr, Normal tone, Sensation intact, Cranial nerves 3-12 intact, Normal affect Lymphatics: No axilla or inguinal lymphadenopathy - Studies Laboratory Data (last 24 hrs) 05/24/19 18:59: Creatinine 1.36 H 05/24/19 18:59: WBC 7.1, Hgb 15.7, Hct 46.4, Plt Count 205 05/24/19 18:59: Sodium 138, Potassium 3.4 L, BUN 10, Creatinine 1.32 H, Glucose 125 H, Total Bilirubin 0.9, AST 30, ALT 57, Alkaline Phosphatase 47, Lipase 159 Assessment & Plan - Problems (Diagnosis) (1) Obstructive uropathy Current Visit: Yes Status: Acute (2) Hydronephrosis, right Current Visit: Yes Status: Acute (3) Acute renal insufficiency Current Visit: Yes Status: Acute (4) Intractable abdominal pain Current Visit: Yes Status: Acute - Plan Plan: 1. IV hydration and IV antibiotics 2. NPO after midnight 3. Urology consultation 4. Pain control 5. Monitor electrolytes and renal function closely 6. UA with microscopy 7. Strain urine; stone to pathology 8. GI and DVT prophylaxis Discharge Plan: Home Plan to discharge in: Greater than 2 days - Advance Directives Does patient have a Living Will: No Does patient have a Durable POA for Healthcare: No - Code Status/Comfort Care Code Status Assessed: Yes Code Status: Full Code Critical Care: No Time Spent Managing PTS Care (In Minutes): 45
[2019-05-25] MEDS ORDERED: PROPOFOL 200 MG/20 ML VIAL IV ONE (09:45)
[2019-05-25] MEDS ORDERED: MIDAZOLAM HCL 2 MG/2 ML INJ ONE (09:45)
[2019-05-25] MEDS ORDERED: FENTANYL CITR 100 MCG/2 ML ONE ×2 (09:45→12:43)
[2019-05-25] MEDS ORDERED: GENTAMICIN 100 MG/100 ML BAG 100 ML IV ONE (10:42)
[2019-05-25] MEDS ORDERED: dexAMETHasone 10 MG/ML VIAL ONE (11:07)
[2019-05-25] MEDS ORDERED: Mastisol Adhesive Liq ONE (11:08)
[2019-05-25] MEDS ORDERED: ONDANSETRON 4 MG/2 ML VIAL ONE (11:08)
[2019-05-25 12:13] VITALS: O2SAT 100
[2019-05-25 12:39] VITALS: BP 107/58; TEMP 98.1
[2019-05-25] MEDS ORDERED: Ringers Lactate 1,000 ML IV ONE (12:43)
--- NOTE | 2019-05-25 14:55 | P.SSS ---
Patient History Date of Service: 05/25/19 Reason for admission: Obstructive uropathy History of Present Illness: Patient is a 38-year-old gentleman with history of nephrolithiasis. He came in complaining of right flank pain. This was very severe and he was having a difficult time urinating. In the emergency room he was treated and diagnostic studies revealed a 5 mm stone at the UVJ as well as moderate right-sided hydronephrosis. Patient had acute renal insufficiency with an elevated creatinine level. Patient is having severe pain. We have consulted Urology. Patient will be NPO after midnight. He may need a stone extraction if he does not passive. IV antibiotics and hydration as well. Allergies No Known Allergies Allergy (Unverified 12/28/17 18:43) Home Medications: Amlodipine Besylate 1 tab PO DAILY 05/24/19 Codeine/APAP [Tylenol W/Codeine #3 tab] 1 tab PO Q6HP PRN #21 tab 05/25/19 Oxybutynin Chloride [Oxybutynin Chloride ER] 10 mg PO DAILY #7 tab.er.24 Tamsulosin [Flomax] 0.4 mg PO DAILY 21 Days #21 cap 05/25/19 - Past Medical/Surgical History Has patient received pneumonia vaccine in the past: No Diabetic: No -: HTN - Family History Father -: Cancer - Social History Smoking Status: Never smoker Alcohol use: No CD- Drugs: No Caffeine use: Yes Place of Residence: Home Review of Systems 10-point ROS is otherwise unremarkable Physical Examination - Vital Signs Temperature: 98.1 F Blood Pressure: 107/58 Pulse: 78 Respirations: 18 Pulse Ox (%): 96 - Physical Exam General: Alert, In no apparent distress HEENT: Atraumatic, PERRLA, Mucous membr. moist/pink, EOMI, Sclerae nonicteric Neck: Supple, 2+ carotid pulse no bruit, No LAD, Without JVD or thyroid abnormality Respiratory: Clear to auscultation bilaterally, Normal air movement Cardiovascular: Regular rate/rhythm, Normal S1 S2 Gastrointestinal: Normal bowel sounds, No tenderness Musculoskeletal: No tenderness Integumentary: No rashes Neurological: Normal gait, Normal speech, Normal strength at 5/5 x4 extr, Normal tone, Normal affect Lymphatics: No axilla or inguinal lymphadenopathy - Studies Laboratory Data (last 24 hrs) 05/24/19 18:59: Creatinine 1.36 H 05/24/19 18:59: WBC 7.1, Hgb 15.7, Hct 46.4, Plt Count 205 05/24/19 18:59: Sodium 138, Potassium 3.4 L, BUN 10, Creatinine 1.32 H, Glucose 125 H, Total Bilirubin 0.9, AST 30, ALT 57, Alkaline Phosphatase 47, Lipase 159 - Diagnosis (Problem(s)) (1) Hydronephrosis, right Status: Resolved (2) Obstructive uropathy Status: Resolved (3) Acute renal insufficiency Status: Resolved - Disposition Disposition: ROUTINE DISCHARGE Condition: FAIR Diet: Regular Activity: Ad zana
--- NOTE | 2019-05-25 15:05 | CON ---
History Of Present Illness: This is a pleasant 38-year-old gentleman, who had passed a kidney stone 2 to 3 years ago. He does drink lots of iced tea he says and now he has another 5 mm stone at the le ft UPJ with moderate hydronephrosis on the left. KUB was performed that did not see the stone, but h is urine pH is about 7, so it is not consistent with a uric acid stone. The plan is to do ESWL. If we are not able to see the stone, we may have to do a cysto, retrograde pyelogram to find the stone a nd then do shocks to the stone, possible placement of stent. He knows all the general information, a lternatives, and risks and wishes to proceed. Past Medical History: Kidney stones. Allergies: NO KNOWN DRUG ALLERGIES. Medications: Amlodipine 1 tab p.o. daily. Past Medical History: Hypertension. Past Surgical History: None. Family History: Father had cancer. Social History: Never smoked. No alcohol use. No drug use. Caffeine use at home and lots of tea. Resides at home. Review of Systems: The 10-point review of systems otherwise unremarkable. Physical Examination: Vital Signs: Latest vital signs; 97.4, 56, 18, 110/59, 96% saturation. General: Alert, oriented, in no acute distress. HEENT: Atraumatic, normocephalic. Neck: Supple. Respiratory: Clear. Cardiovascular: S1, S2. Abdomen: Soft, nontender. Laboratory Data: Reviewed. White count is down to 5.0, H and H are 13.9 and 39.3, platelet count 10 6. Chemistry shows sodium 140, potassium 3.9, chloride 108, carbon dioxide 27, BUN 9, creatinine 0.9 5, GFR estimated to be 89. Alkaline phosphatase 42 and serum total protein 6.3, low. Urine studies; urine pH 7.0, specific gravity 1.025, blood 2+, esterase negative, nitrite negative. Assessment: Pleasant 38-year-old male with a 5 mm left ureteropelvic junction stone visible on CT, b ut not on KUB. Urine pH of 7. Plan: ESWL plus or minus cysto retrograde plus or minus stent. He knows all the general information , alternatives, and risks and wishes to proceed. EULOGIO/MODL Voice ID: [id number] Report ID: [id number]
[2019-05-25] MEDS ORDERED: ENOXAPARIN 30 MG/0.3 ML SQ SCH (17:00)
== END 2019-05-25 14:30 | disposition home or self-care (01) | DRG 694 ==
LOC: ER 18:42 → ERHOLD 22:20 → 2ND 22:46
PROVIDERS: ADMIT Hospitalist; ATTEND Hospitalist
PROC: BT1FZZZ Fluoroscopy of Left Kidney, Ureter and Bladder (ICD-10-PCS; 2019-05-25)
PROC: 0WHR8YZ Insertion of Other Device into Genitourinary Tract, Via Natural or Artificial Opening Endoscopic (ICD-10-PCS; 2019-05-25)
PROC: 0TF7XZZ Fragmentation in Left Ureter, External Approach (ICD-10-PCS; principal; 2019-05-25 11:00)
DX: N13.2 Hydronephrosis with renal and ureteral calculous obstruction (principal); N28.9 Disorder of kidney and ureter, unspecified; I10 Essential (primary) hypertension
CPT/HCPCS: 36415; 50590; 74018; 74176; 76377; 80048; 80053; 80076; 81003; 83690; 83735; 84100; 85025; 87086; 87088; 96361; 96365; 96375; 99285; J0690; J0696; J1100; J1170; J1580; J1650; J2250; J2405; J2550; J2704; J3010; J7030; J7120